=== PATIENT | female | born 1990 | race African-American/Black ===

== ENCOUNTER 2017-11-28 16:04 | Observation (INO) | payer MEDICAID ==
[~2017-11-28] VITALS: Ht 160 cm; Wt 59.9 kg
[2017-11-28] MEDS ORDERED: PREN1TAB78 MT (16:43)
== END 2017-11-28 17:00 | disposition home or self-care (01) ==
LOC: L&D 16:04
PROVIDERS: ADMIT Obstetrics & Gynecology; ATTEND Obstetrics & Gynecology
DX: O62.9 Abnormality of forces of labor, unspecified (principal); Z3A.38 38 weeks gestation of pregnancy
CPT/HCPCS: 99281; G0378